=== PATIENT | female | born 1960 | race Caucasian/White ===

== ENCOUNTER 2019-04-15 10:04 | Emergency (ER) | payer MEDICAID ==
[~2019-04-15] VITALS: Ht 149.9 cm; Wt 74.0 kg
[~2019-04-15 10:04] MED LIST: TRAM50TA2 PO; ZOF8 PO
[2019-04-15 10:15] VITALS: BP 182/97; PULSE 69; RESP 19; Ht 149.9 cm; Wt 74.0 kg
[2019-04-15] MEDS ORDERED: ACYC400T2 PO (12:19)
--- NOTE | 2019-04-15 13:32 | ERD ---
ER Documentation Chief Complaint Chief Complaint GENITAL PAIN HPI 59-year-old female patient with no significant past medical history history presents to the ED stating that he has vaginal ulcers, and is itchy. States that she feels a burning sensation where the rashes are. Denies any fever, chills, nausea, vomiting, diarrhea, neck stiffness. Denies being sexually active. Denies any vaginal bleeding, vaginal discharge, abdominal pain, chest pain, shortness of breath. ROS All systems reviewed and are negative except as per history of present illness. Medications Home Meds Active Scripts Acyclovir* (Acyclovir*) 400 Mg Tablet, 400 MG PO TID, #7 TAB Prov:NEERAJ HUGHES PA-C 04/15/19 Ondansetron Hcl* (Zofran* ODT) 8 mg -ODT Tab.disper, 8 MG PO Q6 PRN for NAUSEA AND/OR VOMITING, #10 TAB Prov:GENO MENDEZ MD 06/11/15 Tramadol HCl (Tramadol HCl) 50 Mg Tab, 50 MG PO Q4 PRN for PAIN, #20 TAB Prov:GENO MENDEZ MD 06/11/15 Allergies Allergies: Coded Allergies: No Known Allergy (Unverified , 06/11/15) PMhx/Soc History of Surgery: No Anesthesia Reaction: No Hx Neurological Disorder: No Hx Respiratory Disorders: No Hx Cardiac Disorders: Yes (HTN,Dyslipidemia) Hx Psychiatric Problems: No Hx Miscellaneous Medical Probl: Yes (Menopause) Hx Alcohol Use: No Hx Substance Use: No Hx Tobacco Use: No FmHx Family History: No diabetes, No coronary disease Physical Exam Vitals Vital Signs Date Temp Pulse Resp B/P (MAP) Pulse Ox O2 O2 Flow FiO2 Time Delivery Rate 04/15/19 98.1 69 19 182/97 95 10:15 (125) Physical Exam Const: Deh-qsb-[id number], well-nourished. In no acute distress. Head: Atraumatic, normocephalic Eyes: Normal Conjunctiva without injection. No purulent discharge. ENT: Normal external ear, nose. Moist oropharynx without tonsillar exudates. Non-erythematous pharynx. Uvula midline. No drooling. No trismus. Neck: No cervical midline tenderness. Full range of motion. No meningismus. No cervical lymphadenopathy. No JVD. Resp: Clear to auscultation bilaterally. No wheezing, rhonchi, rales, or crackles. No accessory muscle use. No retractions. Cardio: Regular rate and rhythm. No murmurs, rubs or gallops. Abd: Soft, nontender, non distended. Normal bowel sounds. No palpable masses. No rebound tenderness. No guarding. Negative McBurney's point. Negative psoas sign. Negative obturator sign. : Ulcerated herpetic lesions noted at the superior portion of patient's cli toris as well as right labia. No bleeding noted. No edema, purulent discharge noted. Skin: No petechiae or rashes Back: No midline tenderness. No CVA tenderness. Ext: No cyanosis, or edema. Neur: Awake and alert. Normal gait. Normal coordination. Psych: Normal Mood and Affect Procedures/MDM 59-year-old female patient with no significant past medical history presents ED complaining of general pain, itchiness, blister-like lesions that she describes as burning. Patient is afebrile and nontoxic-appearing. Patient's blood pressure is 182/97. Blood Pressure Assessment: Patient's blood pressure was elevated (>120/80) but appears stable without evidence of hypertension emergency or urgency. The patient was counseled about the risks of hypertension and urged to pursue outpatient monitoring and therapy within a week with their primary care physician. Pelvic Exam: Founder / Ceo present Abdomen: Nontender External Genitalia: Ulcerative herpetic lesion noted at the superior portion of patient's clitoris as well as right side of her labia. Speculum: Normal vaginal mucosa, normal cervical discharge Bimanual: No adnexal masses or tenderness, No CMT Patient will be treated for genital herpes. Low suspicion for diarrhea, chlamydia, trichomoniasis, BV, PID, UTI, pyelonephritis, acute abdomen, appendicitis, or other emergent conditions. Diagnosis: Female genital lesion Discharge medications: Acyclovir Follow up with primary care physician in 1-2 days. Instructed patient to return to the ED sooner for any worsening symptoms. Patient's questions were answered. Patient is hemodynamically stable. Patient understood and agreed with discharge plan. Patient discharged stable. Disclaimer: Inadvertent spelling and grammatical errors are likely due to EHR/dictation software use and do not reflect on the overall quality of patient care. Also, please note that the electronic time recorded on this note does not necessarily reflect the actual time of the patient encounter. Departure Diagnosis: Primary Impression: Female genital lesion Condition: Stable Patient Instructions: Herpes Genitalis, Hsv: Type Ii, Hypertension, To Be Confirmed Referrals: [facility] YOU HAVE RECEIVED A MEDICAL SCREENING EXAM AND THE RESULTS INDICATE THAT YOU DO NOT HAVE A CONDITION THAT REQUIRES URGENT TREATMENT IN THE EMERGENCY DEPARTMENT. FURTHER EVALUATION AND TREATMENT OF YOUR CONDITION CAN WAIT UNTIL YOU ARE SEEN IN YOUR DOCTORS OFFICE WITHIN THE NEXT 1-2 DAYS. IT IS YOUR RESPONSIBILITY TO MAKE AN APPOINTMENT FOR FOLOW-UP CARE. IF YOU HAVE A PRIMARY DOCTOR --you should call your primary doctor and schedule an appointment IF YOU DO NOT HAVE A PRIMARY DOCTOR YOU CAN CALL OUR PHYSICIAN REFERRAL HOTLINE AT IF YOU CAN NOT AFFORD TO SEE A PHYSICIAN YOU CAN CHOSE FROM THE FOLLOWING [facility] [address] [email or web address]. [facility] [address] [email or web address] [address] [facility] [address] [facility] [address] [facility]. [facility] [address] [facility]. [facility] YOU HAVE RECEIVED A MEDICAL SCREENING EXAM AND THE RESULTS INDICATE THAT YOU DO NOT HAVE A CONDITION THAT REQUIRES URGENT TREATMENT IN THE EMERGENCY DEPARTMENT. FURTHER EVALUATION AND TREATMENT OF YOUR CONDITION CAN WAIT UNTIL YOU ARE SEEN IN YOUR DOCTORS OFFICE WITHIN THE NEXT 1-2 DAYS. IT IS YOUR RESPONSIBILITY TO MAKE AN APPOINTMENT FOR FOLOW-UP CARE. IF YOU HAVE A PRIMARY DOCTOR --you should call your primary doctor and schedule and appointment IF YOU DO NOT HAVE A PRIMARY DOCTOR YOU CAN CALL OUR PHYSICIAN REFERRAL HOTLINE AT . IF YOU CAN NOT AFFORD TO SEE A PHYSICIAN YOU CAN CHOSE FROM THE FOLLOWING [facility] INSTITUTIONS: [facility] [address] [place] [address] [facility] [address] [place] [address] [facility] + [address] [address] [facility] URGENT C[facility]/SPECIALTIES Additional Instructions: Llame al doctor MAANA y danilo carisa CHRISTOPHER PARA DENTRO DE 2-3 SCHMIDT.Dgale a la secretaria que nosotros le instruimos hacer esta christopher.Avise o llame si ken condicin se empeora antes de la christopher. Regresa aqui si peor o no mejor. NEERAJ HUGHES PA-C April 15, 2019 13:32
== END 2019-04-15 12:59 | disposition home or self-care (01) ==
LOC: FTE 10:04
DX: A60.09 Herpesviral infection of other urogenital tract (principal); I10 Essential (primary) hypertension
CPT/HCPCS: 99284